=== PATIENT | female | born 1985 | race American Indian/Alaskan Native ===

== ENCOUNTER 2017-04-18 19:43 | Outpatient (CLI) | payer MEDICAID, OTHER ==
[2017-04-18 20:03] VITALS: BP 114/61
[2017-04-18] MEDS ORDERED: LACTATED RINGERS 500 ML IV ONE (20:28)
[2017-04-18 20:48] LABS: Bacteria,Urine 1+ /HPF (Negative); Bilirubin,Urine NEG (Negative); Blood,Urine SM (Negative); Color,Urine Red (Yellow); Mucus,Urine FEW /HPF; Nitrite,Urine NEG (Negative); Protein,Urine <15 mg/dL mg/dL (Negative); Urobilinogen,Urine < 2.0 mg/dL (<2.0)
[2017-04-18] MEDS ORDERED: VISTARIL PO PRN (22:51)
--- NOTE | 2017-04-18 22:53 | Ultrasound Report ---
FINAL REPORT PROCEDURE: US OB LIMITED TECHNIQUE: Multiple transabdominal sonographic images of the uterus with twin gestation were obtained. HISTORY: sharp abdominal pain (twin ) COMPARISON: No prior studies are available for comparison. FINDINGS: Twin A: Placenta is anterior with grade 1 maturity. No evidence of any abruption is identified. heart rate is 135 beats per minute. Twin B: Pleasant dyes fundal with grade 1 maturity. There is no evidence of abruption. heart rate is 139 beats per minute. Cervical length is 3.2 centimeters. Internal os is closed. IMPRESSION: Live intrauterine twin gestation is identified. No evidence of placental abruption. Cervical length is 3.2 centimeters.
== END 2017-04-18 22:50 | disposition home or self-care (01) ==
LOC: TRG 19:43
PROVIDERS: ATTEND Obstetrics & Gynecology Gynecology
DX: O30.003 Twin pregnancy, unspecified number of placenta and unspecified number of amniotic sacs, third trimester (principal); O47.03 False labor before 37 completed weeks of gestation, third trimester; Z3A.34 34 weeks gestation of pregnancy
CPT/HCPCS: 59025; 76815; 81001; Q0177

== ENCOUNTER 2017-05-01 14:01 | Outpatient (CLI) | payer MEDICAID ==
--- NOTE | 2017-05-01 18:36 | Ultrasound Report ---
FINAL REPORT EXAM: US OB LIMITED HISTORY: Twin gestation TECHNIQUE: Transabdominal sonography of the pelvis. PRIORS: 18 April 2017. FINDINGS: There is a twin, live intrauterine in cephalic presentation for both twin A and twin B. heart motion is detected and heart rate is 144 beats per minute (twin A) and 136 beats per minute (twin B). Placenta is located anterior fundal. Biometric data not obtained and estimated gestational age not generated. survey not performed. Amniotic fluid largest vertical pocket 5.2 cm (twin A) and 6 cm (twin B). Remainder of the uterus and adnexa grossly unremarkable. IMPRESSION: 1. Twin, live intrauterine .
--- NOTE | 2017-05-01 18:38 | Ultrasound Report ---
FINAL REPORT EXAM: US OB BPP EA ADD EXAM HISTORY: TWIN GESTATION TECHNIQUE: Transabdominal sonography of the pelvis. PRIORS: None. FINDINGS: Twin B biophysical profile: breathing movement: 2/2 movements: 2/2 posterior and tone: 2/2 Qualitative amniotic fluid volume: 2/2 Total: 8/8 heart rate 136 beats per minute. IMPRESSION: 1. Biophysical profile as noted above.
--- NOTE | 2017-05-01 18:38 | Ultrasound Report ---
FINAL REPORT EXAM: US OB BPP WO NON-STRESS HISTORY: TWIN GESTATION TECHNIQUE: Transabdominal sonography of the pelvis. PRIORS: None. FINDINGS: Twin A biophysical profile: breathing movement: 2/2 movements: 2/2 posterior and tone: 2/2 Qualitative amniotic fluid volume: 2/2 Total: 8/8 heart rate 144 beats per minute. IMPRESSION: 1. Biophysical profile as noted above.
== END 2017-05-01 16:59 | disposition home or self-care (01) ==
LOC: TRG 14:01
PROVIDERS: ATTEND Obstetrics & Gynecology
DX: O30.003 Twin pregnancy, unspecified number of placenta and unspecified number of amniotic sacs, third trimester (principal); O47.1 False labor at or after 37 completed weeks of gestation; Z3A.37 37 weeks gestation of pregnancy
CPT/HCPCS: 76815; 76819